=== PATIENT | female | born 1990 | race Caucasian/White ===

== ENCOUNTER 2020-11-28 14:23 | Emergency (ER) | payer SELFPAY ==
[~2020-11-28] VITALS: Ht 157.5 cm; Wt 57.4 kg
--- NOTE | 2020-11-28 15:40 | PHYS DOC ---
Past History Past Medical History: Other (Ulcerative colitis) Past Surgical History: No Surgical History Smoking: Non-smoker Alcohol Use: None Drug Use: None Adult General Chief Complaint Chief Complaint: DIARRHEA HPI HPI Patient is a 30-year-old female presenting for abdominal pain. Nothing known makes better, p.o. intake makes worse. Describes pain as low in her back and mostly rectal with associated bloody stools. She has a known history of ulcerative colitis, was diagnosed 5 years ago via colonoscopy. States she has been at baseline health with last UC flareup being 2 years ago. Reports she is actively at 9 weeks, she is . She saw her LIQUID CHLORINE OPERATOR earlier this week for care and discussed her recent episode of increased bloody poop concerning for UC flare, admits she typically takes sulfasalazine for this but since she relocated she has been without a primary care physician and subsequently been out of sulfasalazine. Nonetheless, she was prescribed sulfasalazine by LIQUID CHLORINE OPERATOR but local pharmacy did not have this in stock and so, she subsequently transported herself to our ER for evaluation and intervention Review of Systems Review of Systems Fourteen body systems of review of systems have been reviewed. See HPI for pertinent positives and negative responses, other snow all other systems are negative, non-pertinent or non-contributory Physical Exam Physical Exam Constitutional: Well developed, well nourished, no acute distress, non-toxic appearance. HENT: Normocephalic, atraumatic, bilateral external ears normal, oropharynx moist, no oral exudates, nose normal. Eyes: PERRLA, EOMI, conjunctiva normal, no discharge. Neck: Normal range of motion, no tenderness, supple, no stridor. Cardiovascular: Heart rate regular, sinus rhythm, no murmurs rubs or gallops Lungs & Thorax: Bilateral breath sounds clear to auscultation Abdomen: Bowel sounds normal, soft, generalized abdominal pain, no guarding or rebound, no masses, no pulsatile masses. Nonsurgical abdomen, no peritoneal si gns Skin: Warm, dry, no erythema, no rash. Back: No tenderness, no CVA tenderness. Extremities: No tenderness, no cyanosis, no clubbing, ROM intact, no edema. Neurologic: Alert and oriented X 3, grossly normal motor & sensory function, no focal deficits noted. Psychologic: Affect normal, judgement normal, mood normal. Current Patient Data Vital Signs Vital Signs Date Time Temp Pulse Resp B/P (MAP) Pulse Ox O2 Delivery O2 Flow Rate FiO2 11/28/20 15:54 98.3 66 16 104/45 (64) 99 Room Air Vital Signs Date Time Temp Pulse Resp B/P (MAP) Pulse Ox O2 Delivery O2 Flow Rate FiO2 11/28/20 15:54 98.3 66 16 104/45 (64) 99 Room Air Lab Results Laboratory Tests Test 11/28/20 16:19 White Blood Count 10.5 x10^3/uL Red Blood Count 4.99 x10^6/uL Hemoglobin 14.5 g/dL Hematocrit 43.5 % Mean Corpuscular Volume 87 fL Mean Corpuscular Hemoglobin 29 pg Mean Corpuscular Hemoglobin Concent 33 g/dL Red Cell Distribution Width 14.8 % Platelet Count 376 x10^3/uL Neutrophils (%) (Auto) 73 % Lymphocytes (%) (Auto) 15 % Monocytes (%) (Auto) 9 % Eosinophils (%) (Auto) 3 % Basophils (%) (Auto) 0 % Neutrophils # (Auto) 7.7 x10^3uL Lymphocytes # (Auto) 1.6 x10^3/uL Monocytes # (Auto) 0.9 x10^3/uL Eosinophils # (Auto) 0.3 x10^3/uL Basophils # (Auto) 0.0 x10^3/uL Sodium Level 135 mmol/L Potassium Level 3.4 mmol/L Chloride Level 100 mmol/L Carbon Dioxide Level 19 mmol/L Anion Gap 16 Blood Urea Nitrogen 5 mg/dL Creatinine 0.5 mg/dL Estimated GFR (Cockcroft-Gault) 143.9 BUN/Creatinine Ratio 10 Glucose Level 64 mg/dL Calcium Level 9.1 mg/dL Total Bilirubin 1.2 mg/dL Aspartate Amino Transf (AST/SGOT) 15 U/L Alanine Aminotransferase (ALT/SGPT) 17 U/L Alkaline Phosphatase 68 U/L Total Protein 8.6 g/dL Albumin 3.6 g/dL Albumin/Globulin Ratio 0.7 Lipase 97 U/L Current Medications Medications (Trade) Dose Ordered Sig/Kelly Route PRN Reason Start Time Stop Time Status Last Admin Dose Admin Sodium Chloride 1,000 ml @ 1,000 mls/hr 1X ONCE IV 11/28/20 15:45 11/28/20 16:44 DC 11/28/20 16:33 Sulfasalazine (Azulfidine) 500 mg 1X ONCE PO 11/28/20 17:00 11/28/20 17:01 DC 11/28/20 17:02 Ondansetron HCl (Zofran) 4 mg 1X ONCE IVP 11/28/20 16:45 11/28/20 16:47 DC 11/28/20 17:02 Fentanyl Citrate (Fentanyl 2ml Vial) 50 mcg 1X ONCE IVP 11/28/20 16:45 11/28/20 16:47 DC 11/28/20 17:01 EKG EKG EKG ordered and interpreted by myself at 1610 hrs. is sinus rhythm at 54 bpm, unremarkable intervals, no axis deviation, T wave inversion noted in leads III and aVL, no STEMI Radiology/Procedures Radiology/Procedures [] Heart Score C/O Chest Pain: No HEART Score for Chest Pain: HEART Score for Chest Pain Response (Comments) Value History Slighlty/Non-Suspicious 0 ECG Nonspecific Repolarizatio 1 Age < 45 0 Risk Factors No Risk Factors 0 Total 1 Risk Factors: Risk Factors: DM, Current or recent (<one month) smoker, HTN, HLP, family history of CAD, obesity. Risk Scores: Risk Factors: DM, Current or recent (<one month) smoker, HTN, HLP, family history of CAD, obesity. Course & Med Decision Making Course & Med Decision Making ABCs unremarkable HPI physical exam and comprehensive ER work-up nonconcerning for any emergent or surgical issues Patient feels like she is suffering from classic ulcerative colitis flare, rate limiting step has been access to sulfasalazine in outpatient setting Patient responded to IV fluids, nausea medicine and IV pain medication administered in ER setting I called and confirmed that [facility] carried sulfasalazine. X1 dose was given today and subsequent prescription ordered Discussed with patient need for hospital transfer to [facility] for GI consultation but at this time, patient felt safe to discharge home with p.o. sulfasalazine and close outpatient follow-up As such, strict return precautions were discussed and understood by patient, all questions and concerns addressed prior to ER departure Sadiaon Disclaimer Dragon Disclaimer This electronic medical record was generated, in whole or in part, using a voice recognition dictation system. Departure Departure: Impression: Primary Impression: Ulcerative colitis with rectal bleeding Disposition: HOME / SELF CARE / HOMELESS Condition: STABLE Referrals: PCP,MARYLU (PCP) Patient Instructions: Ulcerative Colitis Additional Instructions: As discussed prior to ER departure, your vitals, physical exam and comprehensive ER work-up was nonconcerning for any emergent or surgical issues I disclosed potential need for further radiographic work-up and other diagnostic studies but given symptom improvement with administered IV fluids, nausea medicine and pain control, this was deferred You have known history of ulcerative colitis with flareups in today's history is consistent with that, joint decision made to treat as such with sulfasalazine I called and confirmed that the receiving pharmacy had sufficient sulfasalazine in stock for you. Please take medication as prescribed to completion It is imperative that you contact the attached GI doctor for outpatient follow- up for your ulcerative colitis since he recently moved here and are without GI specialty care If any concerning signs or symptoms present prior to outpatient follow-up please do not hesitate to come back for repeat evaluation. It was a pleasure to take care of you and I wish you the best going forward Scripts Sulfasalazine (SULFASALAZINE DR) 500 Mg Tablet.dr 500 MG PO BID for ULCERATIVE COLITIS for 7 Days, #14 TAB Prov: ZARA DOUGHERTY DO 11/28/20 ZARA DOUGHERTY DO Nov 28, 2020 15:40
[2020-11-28 15:54] VITALS: BP 104/45
[2020-11-28] MEDS: IV NORMAL SALINE 1,000ML 1,000 ML IV ONE (16:33)
[2020-11-28 16:37] LABS: BASO % 0 % (0-3); EOS # 0.3 x10^3/uL (0.0-0.7); EOS % 3 % (0-3); HEMATOCRIT 43.5 % (36.0-47.0); HEMOGLOBIN 14.5 g/dL (12.0-15.5); LYMPH # 1.6 x10^3/uL (1.0-4.8); LYMPH % 15 % (24-48); MEAN CORPUSCULAR HEMOGLOBIN 29 pg (25-35); MEAN CORPUSCULAR HGB CONC 33 g/dL (31-37); MEAN CORPUSCULAR VOLUME 87 fL (79-100); MONO # 0.9 x10^3/uL (0.0-1.1); MONO % 9 % (0-9); NEUT # 7.7 x10^3uL (1.8-7.7); NEUT % 73 % (31-73); PLATELET COUNT 376 x10^3/uL (140-400); RED BLOOD COUNT 4.99 x10^6/uL (3.50-5.40); RED CELL DISTRIBUTION WIDTH 14.8 % (11.5-14.5); WHITE BLOOD COUNT 10.5 x10^3/uL (4.0-11.0)
[2020-11-28 16:44] LABS: CALCIUM 9.1 mg/dL (8.5-10.1); CREATININE 0.5 mg/dL (0.6-1.0); GFR 143.9; POTASSIUM 3.4 mmol/L (3.5-5.1)
[2020-11-28 16:50] LABS: ALBUMIN 3.6 g/dL (3.4-5.0); ALBUMIN/GLOBULIN RATIO 0.7 (1.0-1.7); TOTAL BILIRUBIN 1.2 mg/dL (0.2-1.0); TOTAL PROTEIN 8.6 g/dL (6.4-8.2)
[2020-11-28] MEDS: sulfaSALAzine 500 MG TABLET PO ONE (17:02)
[2020-11-28] MEDS: ONDANSETRON PF 4 MG/2 ML VIAL. IVP ONE (17:02)
--- NOTE | 2020-11-28 17:06 | EKG ---
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
[2020-11-28] MEDS ORDERED: SULF500T36 PO (17:27)
== END 2020-11-28 17:56 | disposition home or self-care (01) ==
LOC: ER 14:23
DX: O99.611 Diseases of the digestive system complicating pregnancy, first trimester (principal); K51.911 Ulcerative colitis, unspecified with rectal bleeding; Z3A.09 9 weeks gestation of pregnancy
CPT/HCPCS: 36415; 80053; 83690; 85025; 93005; 96361; 96374; 96375; 99284; J2405; J3010; J7030

== ENCOUNTER 2021-02-25 16:59 | Emergency (ER) | payer OTHER ==
[~2021-02-25] VITALS: Ht 160 cm; Wt 64.6 kg
[~2021-02-25 16:59] MED LIST: SULF500T36 PO
--- NOTE | 2021-02-25 17:55 | PHYS DOC ---
Past History Past Medical History: Other Additional Past Medical Histor: ulcerative colitis, herpes Past Surgical History: No Surgical History Smoking: Non-smoker Alcohol Use: None Drug Use: None General Adult EDM: Chief Complaint: FEVER HPI: HPI: ".. I ve been running a.. fever.. chills, hurt all over... :' Patient is a 30 year old female who presents with above Hx. and complaints of fever, chills, malaise, arthralgia, myalgia, Pt. is 22 weeks . Pt. Gravid 6, T2 and Miscarry 2. Pt. follows with Dr Oliva and plans delivery [facility]. . No recent travel. No specific ill contacts. No Hx. of trauma. Review of Systems: Review of Systems: Constitutional: Denies fever or chills Eyes: Denies change in visual acuity HENT: Denies nasal congestion or sore throat Respiratory: Denies cough or shortness of breath Cardiovascular: Denies chest pain or edema GI: Denies abdominal pain, nausea, vomiting, bloody stools or diarrhea : Denies dysuria Musculoskeletal: Denies back pain or joint pain Integument: Denies rash Neurologic: Denies headache, focal weakness or sensory changes Endocrine: Denies polyuria or polydipsia Lymphatic: Denies swollen glands Psychiatric: Denies depression or anxiety Family History: Family History: Non-contributory Current Medications: Current Meds: See Nursing for home meds. Allergies: Allergies: Allergies Coded Allergies Type Severity Reaction Last Updated Verified No Known Drug Allergies 11/28/20 No Physical Exam: PE: Constitutional: Well developed, well nourished, no acute distress, non-toxic appearance. [] HENT: Normocephalic, atraumatic, bilateral external ears normal, oropharynx moist, no oral exudates, nose swollen turbinates and clear rhinorrhea. Eyes: PERRLA, EOMI, conjunctiva normal, no discharge. [] Neck: Normal range of motion, no tenderness, supple, no stridor. [] Cardiovascular:Heart rate regular rhythm, no murmur [] Lungs & Thorax: Bilateral breath sounds equal with few scattered wheezes. Abdomen: Bowel sounds normal, soft, no tenderness, no masses, no pulsatile masses. [] Skin: Warm, dry, no erythema, no rash. [] Back: No tenderness, no CVA tenderness. [] Extremities: No tenderness, no cyanosis, no clubbing, ROM intact, no edema. [] No cording appreciated. Neurologic: Alert and oriented X 3, normal motor function, normal sensory function, no focal deficits noted. [] Psychologic: Affect normal, judgement normal, mood normal. [] EKG: EKG: [] Radiology/Procedures: Radiology/Procedures: [] Heart Score: C/O Chest Pain: N/A Risk Factors: Risk Factors: DM, Current or recent (<one month) smoker, HTN, HLP, family history of CAD, obesity. Risk Scores: Score 0 - 3: 2.5% MACE over next 6 weeks - Discharge Home Score 4 - 6: 20.3% MACE over next 6 weeks - Admit for Clinical Observation Score 7 - 10: 72.7% MACE over next 6 weeks - Early Invasive Strategies Course & Med Decision Making: Course & Med Decision Making Pertinent Labs and Imaging studies reviewed. (See chart for details) Wear a mask covers nose mouth at all times and contact mother. Self isolate next 5 days. Take Tylenol and ibuprofen as needed for discomfort. Follow-up primary care. Use MDI 2 puffs 4 times a day. Impression: 1. COVID + Positive 2. Viral Syndrome 3. Leukocytosis 13.0 4. Anemia Hgb 10.8 []Note may have loss of dictation. Multiple issues with computor systems. Report Item # [id number]. Multiple calls to [id number] [email or web address] Disclaimer: Kristin Disclaimer: This electronic medical record was generated, in whole or in part, using a voice recognition dictation system. Departure Departure: Referrals: PCP,NO (PCP) Scripts Azithromycin (ZITHROMAX) 250 Mg Tablet 250 MG PO DAILY for ANTI-BIOTIC for 5 Days, #5 TAB 0 Refills Prov: SOCORRO ACEVEDO MD 02/25/21 SOCORRO ACEVEDO MD Feb 25, 2021 17:55
[2021-02-25] MEDS ORDERED: IV RINGERS SOLUTION,LACTATED 1,000 ML IV SCH (18:00)
[2021-02-25] MEDS ORDERED: FAMOTIDINE 20 MG/2 ML VIAL IVP ONE (18:00)
[2021-02-25] MEDS ORDERED: ONDANSETRON PF 4 MG/2 ML VIAL. IVP ONE (18:00)
[2021-02-25 20:32] LABS: BASO % 0 % (0-3); EOS # 0.1 x10^3/uL (0.0-0.7); EOS % 1 % (0-3); HEMATOCRIT 32.7 % (36.0-47.0); HEMOGLOBIN 10.8 g/dL (12.0-15.5); LYMPH # 0.3 x10^3/uL (1.0-4.8); LYMPH % 3 % (24-48); MEAN CORPUSCULAR HEMOGLOBIN 30 pg (25-35); MEAN CORPUSCULAR HGB CONC 33 g/dL (31-37); MEAN CORPUSCULAR VOLUME 90 fL (79-100); MONO # 0.9 x10^3/uL (0.0-1.1); MONO % 7 % (0-9); NEUT # 11.7 x10^3uL (1.8-7.7); NEUT % 90 % (31-73); PLATELET COUNT 255 x10^3/uL (140-400); RED BLOOD COUNT 3.62 x10^6/uL (3.50-5.40)
[2021-02-25] MEDS ORDERED: oxyCODONE/APAP 5/325 1 TAB TABLET ONE (20:32)
[2021-02-25 20:43] LABS: CALCIUM 8.3 mg/dL (8.5-10.1); CREATININE 0.6 mg/dL (0.6-1.0); GFR 116.6; POTASSIUM 3.7 mmol/L (3.5-5.1)
[2021-02-25 20:46] LABS: ALBUMIN 3.2 g/dL (3.4-5.0); DIRECT BILIRUBIN 0.1 mg/dL (0.0-0.2); TOTAL BILIRUBIN 0.4 mg/dL (0.2-1.0); TOTAL PROTEIN 7.1 g/dL (6.4-8.2)
[2021-02-25 21:36] LABS: INFLUENZA A PATIENT NEGATIVE (NEGATIVE); INFLUENZA B PATIENT NEGATIVE (NEGATIVE)
[2021-02-25] MEDS ORDERED: AZIT250T PO (21:53)
[2021-02-25 21:55] LABS: BARBITURATES NEG (NEG); BENZODIAZEPINES NEG (NEG); CANNABINOIDS POS (NEG); COCAINE NEG (NEG); METHADONE NEG (NEG); OPIATES NEG (NEG); PHENCYCLIDINE NEG (NEG)
[2021-02-25 21:56] LABS: AMPHETAMINE/METHAMPHETAMINE NEG (NEG)
[2021-02-25] MEDS ORDERED: AZITHROMYCIN 250 MG TABLET. PO ONE (22:00)
[2021-02-25] MEDS ORDERED: ALBUTEROL SULFATE 8GM INHALER. INH ONE (22:00)
[2021-02-25 22:07] LABS: BACTERIA,URINE 0 /HPF (0-FEW); BILIRUBIN,URINE NEG (NEG); CLARITY,URINE CLEAR; COLOR,URINE YELLOW; GLUCOSE,URINE NEG (NEG); NITRITE,URINE NEG (NEG); UROBILINOGEN,URINE 0.2 mg/dL (0.2 mg/dL)
[2021-02-25 22:29] VITALS: BP 96/56
== END 2021-02-25 22:36 | disposition home or self-care (01) ==
LOC: ER 16:59
DX: O98.512 Other viral diseases complicating pregnancy, second trimester (principal); U07.1 COVID-19; O99.112 Other diseases of the blood and blood-forming organs and certain disorders involving the immune mechanism complicating pregnancy, second trimester; D64.9 Anemia, unspecified; D72.829 Elevated white blood cell count, unspecified; B34.9 Viral infection, unspecified; Z3A.22 22 weeks gestation of pregnancy
CPT/HCPCS: 36415; 80048; 80076; 80307; 81001; 82550; 83690; 84484; 85025; 85610; 85730; 87426; 87804; 94640; 96361; 96374; 96375; 99285; J2405; J3490; J7120; 94664